=== PATIENT | female | born 1960 | race Caucasian/White ===

== ENCOUNTER 2020-11-14 10:44 | Emergency (ER) | payer BC, SELFPAY ==
[~2020-11-14 10:44] MED LIST: Sodium Chloride 0.9% 100 ML BAG ONE
[2020-11-14 11:07] LABS: #Basophils 0.1 thou/uL (0.0-0.2); #Eosinphils 0.3 thou/uL (0.0-0.7); #Lymphocytes 1.3 thou/uL (1.20-3.40); #Monocytes 0.6 thou/uL (0.11-0.59); #Neutrophils 5.7 thou/uL (1.40-6.50); %Basophils 1.1 % (0.0-1.0); %Eosinophils 3.2 % (0.0-10.0); %Lymphocytes 16.3 % (21.0-51.0); %Monocytes 8.1 % (0.0-10.0); %Neutrophils 71.2 % (42.0-75.0); Hemoglobin 15.2 g/dL (12.0-16.0); Mean Corpuscular HGB CONC 33.2 g/dL (32.0-36.0); Mean Corpuscular Hemoglobin 29.8 pg (27.0-31.0); Mean Corpuscular Volume 89.6 fL (78.0-98.0); Mean Platelet Volume 7.4 fL (7.4-10.4); Platelet Count 244 thou/uL (130-400); RBC Distribution Width 11.6 % (11.5-14.5); Red Blood Cell (RBC) Count 5.09 mill/uL (4.20-5.40); White Blood Cell (WBC) Count 7.9 thou/uL (4.8-10.8)
[2020-11-14 11:11] LABS: INR-International Normal Ratio 0.9; PTT 23.5 sec (22.9-36.1); Prothrombin Time 12.1 sec (12.0-14.7)
[2020-11-14 11:21] LABS: ALT (SGPT) 35 U/L (8-55); AST (SGOT) 26 U/L (5-34); Albumin 4.7 g/dL (3.4-4.8); Alkaline Phosphatase 106 U/L (40-110); Anion Gap 15 mmol/L (10-20); BUN (Urea Nitrogen) 18 mg/dL (9.8-20.1); Bilirubin, Total 0.5 mg/dL (0.2-1.2); Calc. Creatinine Clearance 0 mL/min (70-130); Calcium 9.8 mg/dL (7.8-10.44); Carbon Dioxide 25 mmol/L (23-31); Chloride 105 mmol/L (98-107); Globulin 2.9 g/dL (2.4-3.5); Glucose 107 mg/dL (80-115); Potassium 3.8 mmol/L (3.5-5.1); Protein, Total 7.6 g/dL (5.8-8.1); Sodium 141 mmol/L (136-145)
[2020-11-14] MEDS ORDERED: Iopamidol 370 76% 125 ML VIAL FS ONE (12:09)
--- NOTE | 2020-11-16 07:05 | CT ---
CT ANGIO OF HEAD PERFORMED WITH INTRAVENOUS CONTRAST ENHANCEMENT WITH 3D RECONSTRUCTIONS: HISTORY: Possible stroke. The patient has findings after discussion with Dr. Alberto of possible left MCA infarc t. FINDINGS: A CT angio of the neck was not performed for this study. The vertebral arteries appear codominant an d form a basilar artery. The posterior cerebral arteries appear unremarkable. The anterior circulation shows somewhat small but symmetric-appearing anterior and middle cerebral ar teries and their branches. There is not very good peripheral filling on either side, but appearance is symmetric. No evidence for any large vessel occlusion. IMPRESSION: Somewhat small vessels of the anterior circulation, but this is symmetric comparing the anterior and middle cerebral arteries of the right and left side. No evidence of any thrombus. Further evaluatio n with MRI may be helpful in further assessment. Findings discussed with Dr. Alberto. CODE CR POS: [id number]
--- NOTE | 2020-11-16 07:11 | CT ---
CT Stroke Protocol History: Altered mental status Comparison: None. Findings: No acute hemorrhage or infarct. No midline shift or mass effect. Ventricular size and extra -axial CSF spaces are normal. Calvarium is intact. Paranasal sinuses and mastoids are clear. Subtle punctate 2 mm calcification/radiopaque body in the scalp soft tissues near the vertex. Impression: No acute intracranial hemorrhage. ER physician notified of findings via telephone at 10:39 AM.
== END 2020-11-14 11:37 | disposition short-term general hospital (02) ==
LOC: MADERS 10:44 → EDBD 10:44 → MADERS 11:37
DX: I63.9 Cerebral infarction, unspecified (principal); R29.810 Facial weakness; G81.91 Hemiplegia, unspecified affecting right dominant side; I10 Essential (primary) hypertension; Z79.891 Long term (current) use of opiate analgesic; Z79.899 Other long term (current) drug therapy
CPT/HCPCS: 70450; 70496; 80053; 84484; 85025; 85610; 85730; 93005; 94760; 96374; 96376; J2997; J3490; Q9967